=== PATIENT | male | born 1980 | race Caucasian/White ===

== ENCOUNTER 2016-03-29 23:44 | Emergency (ER) | payer OTHER ==
[~2016-03-29] VITALS: Ht 177.8 cm; Wt 115.5 kg
[~2016-03-29 23:44] MED LIST: DXM/4 PO; IBUP-1450 PO; LAMO25TA PO; OMEP20CA9 PO; ONDA4TAB10 SC
[2016-03-29 23:46] VITALS: TEMP 36.3; Ht 177.8 cm; Wt 115.5 kg
--- NOTE | 2016-03-30 00:42 | EMERGENCY ROOM VISIT NOTE ---
History Report prepared by Guillermo: Anayeli Brewster Under the Supervision of: Dr. Olvin Rae D.O. First contact with patient: 23:59 Chief Complaint: FACIAL PAIN/INJURY Stated Complaint: MELENOMA TUMORS OF BRAIN,FACE TWICHING History of Present Illness The patient is a 35 year old male who presents to the Emergency Room with complaints of worsening facial spasms for the past few weeks. The patient has been experiencing facial spasms for the past year secondary to metastatic melanoma of the brain. The patient has been taking Xanax for these spasms. notes that measures that were previously helping to alleviate these spasms are no longer working as effectively. Ice on his neck used to help but is no longer helping. The Xanax is also not as effective and he has to take larger doses. The patient reports that these spasms have been lasting longer than usual over the past two weeks. He had a longer episode this evening, which is why he came to the ED for evaluation. He also reports a left sided facial droop for the past two weeks. The patient follows with Dr. Pruett in [place]. Source of History: patient, spouse/significant other Onset: the past few weeks Position: other (face) Quality: other (spasms) Timing: worsening Modifying Factors (Worsening): other (metastatic melanoma) Modifying Factors (Relieving): ice, other (Xanax) Note: Pt reports left sided facial droop. Review of Systems See HPI for pertinent positives & negatives. A total of 10 systems reviewed and were otherwise negative. Past Medical & Surgical Medical Problems: (1) Brain metastases (2) Depressive Disorder Nec (3) Iatrogenic pneumothorax (4) Stroke Family History Cancer Social History Smoking Status: Never Smoker Alcohol Use: occasionally Marital Status: Housing Status: lives with family Occupation Status: employed Current/Historical Medications Scheduled Doxepin (Sinequan), 50 MG PO HS Escitalopram Oxalate (Lexapro), 20 MG PO QPM Melatonin (Melatonin), 3 MG PO HS Scheduled PRN Alprazolam (Xanax), 1 MG PO TID PRN for Anxiety Allergies Coded Allergies: Latex1 -Allergic Contact Dermititis (Verified Allergy, Intermediate, ITCHING, 03/30/16) Physical Exam Vital Signs Date Time Temp Pulse Resp B/P Pulse Ox O2 Delivery O2 Flow Rate FiO2 03/30/16 05:19 71 18 128/87 98 03/30/16 03:00 78 18 134/100 95 Room Air 03/29/16 23:46 36.3 98 18 150/87 93 Room Air Physical Exam GENERAL: Patient is awake, alert, and in no acute distress. Patient is resting comfortably and showing no signs of anxiety EYES: The conjunctivae are clear. The pupils are round and reactive. EARS, NOSE, MOUTH AND THROAT: The nose is without any evidence of any deformity. Mucous membranes are moist tongue is midline NECK: The neck is nontender and supple. RESPIRATORY: Normal respiratory effort is noted there is no evidence of wheezing rhonchi or rales CARDIOVASCULAR: Regular rate and rhythm noted there no murmurs rubs or gallops normal S1 normal S2 GASTROINTESTINAL: The abdomen is soft. Bowel sounds are present in all quadrants. Abdomen is nontender MUSCULOSKELETAL/EXTREMITIES: There is no evidence of gross deformity full range of motion is noted in the hips and shoulders SKIN: There is no obvious evidence of any rash. There are no petechiae, pallor or cyanosis noted. NEUROLOGIC: Patient is awake alert and oriented x3 strength is symmetric patellar reflexes are 2+ bilaterally. There is a facial droop on the left involving the corner of the mouth, but the forehead was spared. Medical Decision & Procedures ER Provider Diagnostic Interpretation: Radiology results as stated below per my review and radiologist interpretation: MRI HEAD: Compared to 07/31/15 Interval progression of metastatic disease to the brain. Once again, the dominant lesion is located in the right temporoparietal region. This currently measures 3.7 x 3.2 cm compared to 1.7 x 1.3 cm previously. Multiple new metastases, most notably in the high right parietal lobe measuring 1.4 cm. Associated vasgenic edema, but no midline shift or herniation. No gross tumoral hemorrhage. Radiologist: Carlos Mclean M.D. Ultrasound right upper quadrant was obtained. The report was reviewed. Preliminary Findings Only See Final Report For Complete Findings US RUQ: Enlarged and fatty liver. Multiple hepatic cysts, largest measuring 2.7 cm. Gallbladder wall is normal. Common bile duct measures 4 mm. No hydronephrosis. Radiologist: Vasyl Madrid M.D. Study ready at 04:30 and initial results transmitted at 04:42 Laboratory Results 03/30/16 00:40 Red Blood Count 4.41, Mean Corpuscular Volume 94.1, Mean Corpuscular Hemoglobin 32.2, Mean Corpuscular Hemoglobin Concent 34.2, Mean Platelet Volume 8.6, Neutrophils (%) (Auto) 52.4, Lymphocytes (%) (Auto) 29.3, Monocytes (%) (Auto) 16.0, Eosinophils (%) (Auto) 0.3, Basophils (%) (Auto) 0.3, Neutrophils # (Auto ) 3.38, Lymphocytes # (Auto) 1.89, Monocytes # (Auto) 1.03, Eosinophils # (Auto ) 0.02, Basophils # (Auto) 0.02 03/30/16 00:40 Test 03/30/16 00:40 03/30/16 00:41 White Blood Count 6.45 K/uL (4.8-10.8) Red Blood Count 4.41 M/uL (4.7-6.1) Hemoglobin 14.2 g/dL (14.0-18.0) Hematocrit 41.5 % (42-52) Mean Corpuscular Volume 94.1 fL (80-100) Mean Corpuscular Hemoglobin 32.2 pg (25-34) Mean Corpuscular Hemoglobin Concent 34.2 g/dl (32-36) Platelet Count 209 K/uL (130-400) Mean Platelet Volume 8.6 fL (7.4-10.4) Neutrophils (%) (Auto) 52.4 % Lymphocytes (%) (Auto) 29.3 % Monocytes (%) (Auto) 16.0 % Eosinophils (%) (Auto) 0.3 % Basophils (%) (Auto) 0.3 % Neutrophils # (Auto) 3.38 K/uL (1.4-6.5) Lymphocytes # (Auto) 1.89 K/uL (1.2-3.4) Monocytes # (Auto) 1.03 K/uL (0.11-0.59) Eosinophils # (Auto) 0.02 K/uL (0-0.5) Basophils # (Auto) 0.02 K/uL (0-0.2) RDW Standard Deviation 46.8 fL (36.4-46.3) RDW Coefficient of Variation 13.6 % (11.5-14.5) Immature Granulocyte % (Auto) 1.7 % Immature Granulocyte # (Auto) 0.11 K/uL (0.00-0.02) Prothrombin Time 10.2 SECONDS (9.0-12.0) Prothromb Time International Ratio 1.0 (0.9-1.1) Activated Partial Thromboplast Time 25.4 SECONDS (21.0-31.0) Partial Thromboplastin Ratio 1.0 Anion Gap 8.0 mmol/L (3-11) Est Creatinine Clear Calc Drug Dose 135.4 ml/min Estimated GFR () 117.4 Estimated GFR (Non- 101.3 BUN/Creatinine Ratio 22.5 (10-20) Calcium Level 8.5 mg/dl (8.5-10.1) Magnesium Level 2.6 mg/dl (1.8-2.4) Total Bilirubin 0.1 mg/dl (0.2-1) Direct Bilirubin < 0.1 mg/dl (0-0.2) Aspartate Amino Transf (AST/SGOT) 33 U/L (15-37) Alanine Aminotransferase (ALT/SGPT) 113 U/L (12-78) Alkaline Phosphatase 85 U/L (45-117) Total Protein 6.8 gm/dl (6.4-8.2) Albumin 3.2 gm/dl (3.4-5.0) Lipase 434 U/L (73-393) Chemistry Specimen Hemolysis Urine Color YELLOW Urine Appearance CLEAR (CLEAR) Urine pH 5.5 (4.5-7.5) Urine Specific Alloy 1.028 (1.000-1.030) Urine Protein NEG (NEG) Urine Glucose (UA) 1+ (NEG) Urine Ketones NEG (NEG) Urine Occult Blood TRACE (NEG) Urine Nitrite NEG (NEG) Urine Bilirubin NEG (NEG) Urine Urobilinogen NEG (NEG) Urine Leukocyte Esterase NEG (NEG) Urine WBC (Auto) 0 /hpf (0-5) Urine RBC (Auto) 0-4 /hpf (0-4) Urine Hyaline Casts (Auto) 1-5 /lpf (0-5) Urine Epithelial Cells (Auto) 0-5 /lpf (0-5) Urine Bacteria (Auto) NEG (NEG) Laboratory results per my review. ED Course 2359: The patient was evaluated in room B3B. A complete history and physical examination were performed. 0216: The patient was at [facility] and his requested to speak with me. She informed me that the patient has been having RUQ pains for the past few weeks as well as hematochezia. 0323: The patient returned from MRI. I spoke with him about his abdominal pain and hematochezia. We discussed the treatment plan. The patient will get an US of his gallbladder. 0459: I reassessed the patient at this time. He is feeling better and resting comfortably. I discussed the results and treatment plan with the patient. I answered all pertaining questions that he had. He expressed understanding and verbalized agreement. The patient will be discharged home. Medical Decision Differential diagnosis: Etiologies such as infection, hypoglycemia, electrolyte abnormalities, cardiac sources, intracerebral event, trauma, toxicologic, neurologic, as well as others were entertained. Nursing notes reviewed. Additional history is obtained from the patient's significant other. The patient is a 35-year-old male who is unfortunate history of metastatic melanoma. The patient is had metastatic disease to the brain. The patient has been having problems with twitching on the left side of his face because of a known right sided metastatic lesion. The patient has been treated with benzos with some relief. His significant other states that he is stop taking his seizure medications because of side effects. He does have a follow-up appointment this Sunday with his primary neurosurgical group at [facility]. He had an MRI at the beginning of this month. He's been having symptoms that have been ongoing. He also has been complaining of right upper quadrant pain as well. I discussed the patient's laboratory and radiographic studies with him. He did not have any seizure episode here. I did compare his MRI report this evening to the one from March 15 of this year and the metastatic disease has somewhat progressed. It is likely he will have to meet with his neurosurgeon to determine a plan where to go from here. He was encouraged to take both reports with him to follow-up with his primary neurologist. He was also encouraged to follow-up with his primary care physician for further evaluation and continue all other medications as prescribed. Impression Primary Impression: Focal seizure Additional Impression: RUQ abdominal pain Scribe Attestation The scribe's documentation has been prepared under my direction and personally reviewed by me in its entirety. I confirm that the note above accurately reflects all work, treatment, procedures, and medical decision making performed by me. Departure Information Dispostion Home / Self-Care Referrals Gemini Wells D.O. (PCP) Forms HOME CARE DOCUMENTATION FORM, IMPORTANT VISIT INFORMATION, Work Instructions Patient Instructions My [facility], Seizure Partial Additional Instructions Call your family in the morning to schedule a follow-up appointment. You may require further testing to evaluate the cause of your upper abdominal pain. You may also require a referral to a tv technician for colonoscopy. Follow- up with your neurologist and your neurosurgeon as soon as possible. Continue all medications as prescribed. Problem Qualifiers
[2016-03-30 00:56] LABS: BASO % 0.3 %; BASO ABS # 0.02 K/uL (0-0.2); COMPLETE YES; EOS % 0.3 %; HEMATOCRIT 41.5 % (42-52); IG% 1.7 %; LYMPH % 29.3 %; LYMPH ABS # 1.89 K/uL (1.2-3.4); MEAN CELL VOLUME 94.1 fL (80-100); MEAN CORPUSCULAR HEMOGLOBIN 32.2 pg (25-34); MEAN CORPUSCULAR HGB CONC 34.2 g/dl (32-36); MEAN PLATELET VOLUME 8.6 fL (7.4-10.4); NEUT % 52.4 %; PLATELET COUNT 209 K/uL (130-400); RED BLOOD COUNT 4.41 M/uL (4.7-6.1); WHITE BLOOD COUNT 6.45 K/uL (4.8-10.8)
[2016-03-30 00:59] LABS: URINE APPEARANCE CLEAR (CLEAR); URINE BILIRUBIN NEG (NEG); URINE COLOR YELLOW; URINE EPITHELIAL CELL AUTO 0-5 /lpf (0-5); URINE NITRITE NEG (NEG); URINE PH 5.5 (4.5-7.5); URINE SPECIFIC GRAVITY 1.028 (1.000-1.030); UROBILINOGEN NEG (NEG)
[2016-03-30 01:02] LABS: MANUAL MICROSCOPIC REQUIRED? NO; REVIEW REQ? NO
[2016-03-30 01:04] LABS: PROTHROMBIN TIME (PATIENT) 10.2 SECONDS (9.0-12.0)
[2016-03-30 01:16] LABS: BLOOD UREA NITROGEN 22 mg/dl (7-18); BUN/CREATININE RATIO 22.5 (10-20); CALCIUM 8.5 mg/dl (8.5-10.1); CARBON DIOXIDE 27 mmol/L (21-32); CHLORIDE 108 mmol/L (98-107); CREATININE 0.96 mg/dl (0.60-1.40); GLUCOSE 121 mg/dl (70-99); MAGNESIUM 2.6 mg/dl (1.8-2.4); POTASSIUM 3.8 mmol/L (3.5-5.1); SODIUM 143 mmol/L (136-145)
[2016-03-30] MEDS ORDERED: GADAVIST IV PRN (02:30)
[2016-03-30 02:52] LABS: ALT/SGPT 113 U/L (12-78); AST/SGOT 33 U/L (15-37)
[2016-03-30 03:07] LABS: ALKALINE PHOSPHATASE 85 U/L (45-117)
[2016-03-30 05:19] VITALS: BP 128/87; PULSE 71; O2SAT 98
--- NOTE | 2016-03-30 07:03 | DIAGNOSTIC IMAGING REPORT ---
ULTRASOUND RIGHT UPPER QUADRANT ABDOMEN CLINICAL HISTORY: Right upper quadrant abdominal pain. COMPARISON STUDY: Abdominal CT dated 10/30/2013. TECHNIQUE: Real-time, grayscale, and color flow sonography of the right upper quadrant of the abdomen was performed. Images are reviewed in the transverse and longitudinal planes. FINDINGS: Liver: The liver is enlarged and demonstrates heterogeneously increased echotexture consistent with hepatic steatosis. Note this degrades acoustic penetration of the liver. Fatty sparing is seen adjacent to gallbladder fossa. There is no intrahepatic biliary ductal dilatation. The main portal vein is patent. Scattered hepatic cysts measure up to 2.7 cm. Gallbladder: The gallbladder is normal in appearance. No gallstones are identified. There is no gallbladder wall thickening or pericholecystic fluid. A sonographic Cho's sign is reportedly absent. The common bile duct measures up to 0.4 cm in diameter. Pancreas: Visualized portions of the pancreatic head and body are normal in appearance. Right kidney: Survey images of the right kidney demonstrate normal size and echotexture. There is no hydronephrosis. Ascites: None. IMPRESSION: 1. No acute sonographic abnormality is identified in the right upper quadrant. No gallstones are identified. 2. Hepatomegaly and hepatic steatosis. Electronically signed by: Cosme Murillo M.D. 03/30/2016 7:01 AM Dictated Date/Time: 03/30/2016 6:59 AM
--- NOTE | 2016-03-30 07:30 | DIAGNOSTIC IMAGING REPORT ---
MRI OF THE BRAIN COMBO CLINICAL HISTORY: Right facial seizure. History of melanoma. Facial twitching. COMPARISON STUDY: MRI of the brain dated 10/19/2015. TECHNIQUE: MRI of the brain was performed utilizing various T1 and T2-weighted sequences in the axial, sagittal, and coronal planes. The Examination was performed using the seizure protocol. Contrast-enhanced sequences were acquired following the administration of 11 cc of Gadavist. The examination was performed utilizing the seizure protocol. FINDINGS: Brain parenchyma: An enhancing lesion centered in the right frontoparietal region has significantly increased in size from 10/19/2015, now measuring 3.2 x 3.7 x 3.0 cm (previously measured 2.7 x 2.1 x 1.8 cm). This demonstrates a fluid/fluid level and there is minimal susceptibility artifact in this region suggesting a trace component of age indeterminant hemorrhage. The degree of surrounding edema has significantly increased from 10/19/2015, and there is effacement of the overlying cortical sulci. No midline shift is seen. A 15 mm enhancing nodule in the high right frontal lobe in image #19 has significantly increased in size from previous (previously measured 5 mm. Lesions in the left frontal and parietal lobe seen on image #17 are new from previous and measure up to 7 mm. Lesions in the right thalamus, the left occipital lobe, and the left temporal lobe measuring up to 4 mm are also new. An enhancing lesion In the medial right temporal lobe on image #9 has not significantly changed. There is no restricted diffusion typical for acute ischemia. No extra-axial fluid collection is seen. The cerebellar tonsils are normal in configuration. Ventricles, sulci, and cisterns: Normal in configuration. See above. Pituitary and sella: Unremarkable. Intracranial vasculature: Normal flow voids are maintained at the skull base. Orbits: The bony orbits are grossly intact. Orbital contents are normal in appearance. Sinuses and mastoids: Nasal sinuses and mastoid air cells are clear. Calvarium: No destructive calvarial lesion is identified. Cervical cord: Partially visualized cervical spinal cord is normal in morphology and signal intensity. IMPRESSION: 1. Overall progression of intracranial metastatic disease as compared to the 10/19/2015 examination with several new lesions identified. There are least 10 total lesions seen. See above discussion. 2. The largest lesion in the right frontoparietal region has continued to increase in size and there has been continued increase in the degree of surrounding edema with effacement of the adjacent cortical sulci. There is no midline shift. Fluid/fluid levels identified within this lesion suggest a component of age indeterminant hemorrhage. 3. There is no restricted diffusion typical for acute ischemia. Electronically signed by: Cosme Murillo M.D. 03/30/2016 7:28 AM Dictated Date/Time: 03/30/2016 7:17 AM
[2016-04-30] MEDS ORDERED: DOXE50CA3 PO (00:32)
== END 2016-03-30 05:20 | disposition home or self-care (01) ==
LOC: C.EDB 23:46
DX: R56.9 Unspecified convulsions (principal); R10.11 Right upper quadrant pain; Z85.820 Personal history of malignant melanoma of skin; C79.31 Secondary malignant neoplasm of brain; F32.9 Major depressive disorder, single episode, unspecified; Z86.73 Personal history of transient ischemic attack (TIA), and cerebral infarction without residual deficits; Z80.9 Family history of malignant neoplasm, unspecified; Z79.899 Other long term (current) drug therapy

== ENCOUNTER 2016-04-30 16:02 | Emergency (ER) | payer OTHER ==
[~2016-04-30] VITALS: Ht 177.8 cm; Wt 115.0 kg
[~2016-04-30 16:02] MED LIST changes: +DOXE50CA3 PO; -DXM/4 PO; -IBUP-1450 PO; -LAMO25TA PO; -OMEP20CA9 PO; -ONDA4TAB10 SC
[2016-04-30 16:27] VITALS: TEMP 36.8; Ht 177.8 cm; Wt 115.0 kg
[2016-04-30] MEDS ORDERED: DEXAMETHASONE SOD INJ 10 MG/ML VIAL IV STA (16:45)
[2016-04-30] MEDS ORDERED: HYDROmorphone INJ 1 MG/ML SYR IV STA (16:45)
[2016-04-30] MEDS ORDERED: SODIUM CHLORIDE 0.9% 1000ML 1,000 ML IV STA (16:45)
[2016-04-30] MEDS ORDERED: SODIUM CHLORIDE 0.9% 1000ML 1,000 ML IV ONE (16:45)
[2016-04-30] MEDS ORDERED: ONDANSETRON INJ 2 MG/ML 2 ML VIAL IV STA (16:45)
[2016-04-30 17:00] VITALS: O2SAT 95
--- NOTE | 2016-04-30 17:05 | EMERGENCY ROOM VISIT NOTE ---
History Report prepared by Guillermo: Anayeli Brewster Under the Supervision of: Dr. Arun Diaz M.D. First contact with patient: 16:34 Chief Complaint: HEADACHE Stated Complaint: BRAIN CANCER,HEADACHE FOR 3 DAYS History of Present Illness The patient is a 35 year old male who presents to the Emergency Room with complaints of a constant headache for the past 3 days. 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 He had his first chemotherapy treatment 6 days ago. He is scheduled to have his next treatment in [address] Johnson is his oncologist. The patient has a history of migraine headaches. He states that this feels "like a bad migraine" but it also feels different from his typical migraines. He is having neck pain that is worse with movement. states that the patient was complaining of sinus congestion so she had been giving him Sudafed and a nasal spray, but he has not had any relief of his symptoms. She also reports that the patient's blood pressure was elevated this morning. The patient rates his current pain as an 8/10 in severity. Source of History: patient, spouse/significant other Onset: 3 days ago Position: head Symptom Intensity: 8/10 Timing: constant Modifying Factors (Worsening): movement, other (melanoma with mets to the brain) Associated Symptoms: + neck pain Review of Systems See HPI for pertinent positives & negatives. A total of 10 systems reviewed and were otherwise negative. Past Medical & Surgical Medical Problems: (1) Brain metastases (2) Depressive Disorder Nec (3) Iatrogenic pneumothorax (4) Stroke Family History Cancer Social History Smoking Status: Never Smoker Alcohol Use: occasionally Marital Status: Housing Status: lives with family Occupation Status: employed Current/Historical Medications Scheduled Clonazepam (Klonopin), 1 MG PO BID Dexamethasone (Decadron), 4 TAB PO UD Doxepin (Sinequan), 50 MG PO HS Escitalopram Oxalate (Lexapro), 20 MG PO QPM Melatonin (Melatonin), 3 MG PO HS Omeprazole (Prilosec), 20 MG PO DAILY Sumatriptan Succinate (Imitrex), 100 MG PO PRN [Chemo], 1 DOSE IV QOWEEK [Motrin Migraine], 2-3 TABS PO PRN UD Scheduled PRN Alprazolam (Xanax), 1 MG PO TID PRN for Anxiety Ondansetron Hcl (Zofran), 8 MG PO TID PRN for Nausea Allergies Coded Allergies: Latex1 -Allergic Contact Dermititis (Verified Allergy, Intermediate, ITCHING, 03/30/16) Physical Exam Vital Signs Date Time Temp Pulse Resp B/P Pulse Ox O2 Delivery O2 Flow Rate FiO2 04/30/16 21:32 74 18 124/87 93 Room Air 04/30/16 19:47 66 18 140/100 93 Room Air 04/30/16 17:47 99 18 140/86 95 Room Air 04/30/16 17:08 85 04/30/16 17:00 95 Room Air 04/30/16 16:27 36.8 93 20 152/104 95 Room Air Physical Exam GENERAL: Patient is a healthy-appearing well-nourished 35 year old male. HEAD: Normocephalic atraumatic EYES: Ocular movements intact pupils equal and react to light OROPHARYNX mucous membranes are moist no exudates present no erythema or edema present NECK: Supple no nuchal rigidity CHEST: Good equal expansion LUNGS: Clear and equal to auscultation CARDIAC: Normal S1 and S2 ABDOMEN: Soft nontender no guarding BACK: No CVA tenderness EXTREMITIES: No pain upon palpation normal muscle strength in all groups no clubbing cyanosis or edema NEURO: Patient is following commands is answering questions appropriately. Alert and oriented x3 Cranial Nerves 2-12 grossly intact, left sided facial droop. Medical Decision & Procedures ER Provider Diagnostic Interpretation: Radiology results as stated below per my review and radiologist interpretation: HEAD CT NONCONTRAST CT DOSE: 537.48 mGy.cm HISTORY: Metastatic disease Pt known mets to head c/o severe CHIRINOS TECHNIQUE: Multiaxial CT images of the head were performed without the use of intravenous contrast. Comparison: 07/07/2015 Findings: The paranasal sinuses and mastoid air cells are clear. There are findings of progressive hemorrhagic metastatic changes throughout both cerebral hemispheres. Largest contains fluid fluid levels in the right posterior frontal parietal region with a maximum dimension of 5 cm. There is considerable surrounding soft tissue edematous change. There is midline shift to the left upper proximal 9.5 mm Hyperdense or partially hemorrhagic metastatic deposits are identified over the anterior cerebral convexities bilaterally. The fourth ventricle shows no displacement. There is partial effacement and/or distortion of the quadrigeminal plate cistern. Impression: 1. Interval development of progressive hemorrhagic metastatic deposits at multiple locations. 2. The largest is in the posterior right frontal parietal lobe region having a maximum fluid/fluid dimension of 5 cm. Considerable surrounding vasogenic edema. 3. Smaller lesions again high density and partially hemorrhagic are identified at least 2 locations of the left frontal lobe and one on the right 4. Interval development of midline shift to the left of approximately 9.5 mm 5. Partial effacement suprasellar cistern Electronically signed by: Jonathan Gotti M.D. 04/30/2016 5:34 PM Dictated Date/Time: 04/30/2016 5:26 PM CHEST ONE VIEW PORTABLE CLINICAL HISTORY: Sepsis dyspnea COMPARISON STUDY: 08/31/2015 FINDINGS: Moderate cardia megaly. Diaphragms smooth. Lungs are clear. 1 cm nodular density right upper lung unchanged from the prior study. Several small calcified granulomas also stable. IMPRESSION: Mild cardia megaly. Unchanged 1 cm nodular density right upper lung. No focal infiltrates Electronically signed by: Jonathan Gotti M.D. 04/30/2016 5:26 PM Dictated Date/Time: 04/30/2016 5:25 PM Laboratory Results 04/30/16 17:00 Red Blood Count 5.02, Mean Corpuscular Volume 93.0, Mean Corpuscular Hemoglobin 31.3, Mean Corpuscular Hemoglobin Concent 33.6, Mean Platelet Volume 9.1, Neutrophils (%) (Auto) 68.8, Lymphocytes (%) (Auto) 18.4, Monocytes (%) (Auto) 10.8, Eosinophils (%) (Auto) 0.7, Basophils (%) (Auto) 0.1, Neutrophils # (Auto ) 5.12, Lymphocytes # (Auto) 1.37, Monocytes # (Auto) 0.80, Eosinophils # (Auto ) 0.05, Basophils # (Auto) 0.01 04/30/16 17:00 Test 04/30/16 17:00 04/30/16 17:07 White Blood Count 7.44 K/uL (4.8-10.8) Red Blood Count 5.02 M/uL (4.7-6.1) Hemoglobin 15.7 g/dL (14.0-18.0) Hematocrit 46.7 % (42-52) Mean Corpuscular Volume 93.0 fL (80-100) Mean Corpuscular Hemoglobin 31.3 pg (25-34) Mean Corpuscular Hemoglobin Concent 33.6 g/dl (32-36) Platelet Count 247 K/uL (130-400) Mean Platelet Volume 9.1 fL (7.4-10.4) Neutrophils (%) (Auto) 68.8 % Lymphocytes (%) (Auto) 18.4 % Monocytes (%) (Auto) 10.8 % Eosinophils (%) (Auto) 0.7 % Basophils (%) (Auto) 0.1 % Neutrophils # (Auto) 5.12 K/uL (1.4-6.5) Lymphocytes # (Auto) 1.37 K/uL (1.2-3.4) Monocytes # (Auto) 0.80 K/uL (0.11-0.59) Eosinophils # (Auto) 0.05 K/uL (0-0.5) Basophils # (Auto) 0.01 K/uL (0-0.2) RDW Standard Deviation 47.2 fL (36.4-46.3) RDW Coefficient of Variation 14.0 % (11.5-14.5) Immature Granulocyte % (Auto) 1.2 % Immature Granulocyte # (Auto) 0.09 K/uL (0.00-0.02) Prothrombin Time 10.3 SECONDS (9.0-12.0) Prothromb Time International Ratio 1.0 (0.9-1.1) Activated Partial Thromboplast Time 22.8 SECONDS (21.0-31.0) Partial Thromboplastin Ratio 0.9 Anion Gap 11.0 mmol/L (3-11) Est Creatinine Clear Calc Drug Dose 129.7 ml/min Estimated GFR () 111.7 Estimated GFR (Non- 96.4 BUN/Creatinine Ratio 14.2 (10-20) Calcium Level 8.9 mg/dl (8.5-10.1) Total Bilirubin 0.3 mg/dl (0.2-1) Aspartate Amino Transf (AST/SGOT) 34 U/L (15-37) Alanine Aminotransferase (ALT/SGPT) 143 U/L (12-78) Alkaline Phosphatase 94 U/L (45-117) Total Protein 7.3 gm/dl (6.4-8.2) Albumin 3.4 gm/dl (3.4-5.0) Globulin 3.9 gm/dl (2.5-4.0) Albumin/Globulin Ratio 0.9 (0.9-2) Bedside Lactic Acid Venous 1.57 mmol/L (0.90-1.70) Labs reviewed by ED physician. Medications Administered Medications (Trade) Dose Ordered Sig/Mc Route Start Time Stop Time Status Last Admin Dose Admin Sodium Chloride 1,000 ml @ 999 mls/hr Q1H1M ONCE IV 04/30/16 16:45 04/30/16 17:45 DC 04/30/16 17:04 999 MLS/HR Sodium Chloride (Nss 1000ml) 1,000 ml @ 999 mls/hr Q1H1M STAT IV 04/30/16 16:45 04/30/16 17:45 DC 04/30/16 17:04 999 MLS/HR Hydromorphone HCl (Dilaudid Inj) 1 mg NOW STAT IV 04/30/16 16:45 04/30/16 16:48 DC 04/30/16 17:04 1 MG Dexamethasone Sodium Phosphate (Decadron Inj) 10 mg NOW STAT IV 04/30/16 16:45 04/30/16 16:48 DC 04/30/16 17:04 10 MG Ondansetron HCl (Zofran Inj) 4 mg NOW STAT IV 04/30/16 16:45 04/30/16 16:48 DC 04/30/16 17:04 4 MG Prochlorperazine Edisylate (Compazine Inj) 10 mg NOW STAT IV 04/30/16 17:36 04/30/16 17:38 DC 04/30/16 17:44 10 MG Diphenhydramine HCl (Benadryl Inj) 50 mg NOW STAT IV 04/30/16 17:36 04/30/16 17:38 DC 04/30/16 17:44 50 MG Hydromorphone HCl (Dilaudid Inj) 1 mg STK-MED ONCE .ROUTE 04/30/16 21:25 04/30/16 21:28 DC 04/30/16 21:25 1 MG ECG Indication: other Rate (beats per minute): 82 Rhythm: sinus rhythm Findings: PAC, no acute ischemic change ED Course 1634: Past medical records reviewed. The patient was evaluated in room C4. A complete history and physical examination was performed. 1645: Zofran 4 mg IV, Decadron 10 mg IV, Dilaudid 1 mg IV, NSS 1000 ml @ 999 mls /hr IV, NSS 1000 ml @ 999 mls/hr IV 1717: I reassessed the patient at this time and he is doing well. 1730: At this time I spoke with Dr. Gotti of radiology regarding the patient's imaging results. 1736: Benadryl 50 mg IV, Compazine 10 mg IV 1740: I updated the patient and his . 175: At this time I spoke with Dr. Pruett, the patient's neurosurgeon at [facility]. We discussed the patient's results and treatment plan. He accepted the patient for transfer and further management. 180: I reassessed the patient at this time. He is resting more comfortably. I discussed the results and treatment plan with the patient and his . I answered all pertaining questions that they had. They expressed understanding and verbalized agreement. The patient will be transferred to [facility]. Medical Decision Differential diagnosis: Etiologies such as migraine headache, meningitis, sinusitis, CO exposure, ICH, SAH, infection, tumor, headache, sinus thrombosis, arterial dissection, as well as others were entertained. This is a 35-year-old male who has known metastatic disease to his brain complaining of severe headache that is been ongoing for the past 3 days. An IV was established, patient given normal saline bolus, Dilaudid, Zofran. The patient was also given 10 mg of Decadron. Repeat examination revealed improvement patient's symptoms. The patient's CAT scan of his head is concerning for new metastases along with a midline shift. Based on these findings I did discuss the case with the patient's neurosurgeon and [facility] Dr. Faustin who immediately accepted the patient. The patient was given additional Compazine and Benadryl for his headache. He was transferred via ambulance. Both patient and are in agreement with treatment plan. Consults Time Called: 1750 Consulting Physician: Dr. Pruett Returned Call: 1753 At this time I spoke with Dr. Pruett, the patient's neurosurgeon at [facility]. We discussed the patient's results and treatment plan. He accepted the patient for transfer and further management. Impression Primary Impression: Headache Critical Care I have personally spent greater than 30 minutes of critical care time in the direct management of this patient. This includes bedside care, interpretation of diagnostic studies, and testing, discussion with consultants, patient, and family members, and other required patient management activities. This 30 minutes is in excess of all separately billable procedures. Scribe Attestation The scribe's documentation has been prepared under my direction and personally reviewed by me in its entirety. I confirm that the note above accurately reflects all work, treatment, procedures, and medical decision making performed by me. Departure Information Dispostion Transfer Acute Care Facility Referrals Gemini Wells D.O. (PCP) Patient Instructions My [facility] Problem Qualifiers Primary Impression: Headache Headache type: unspecified Headache chronicity pattern: unspecified pattern Intractability: intractable Qualified Codes: R51 - Headache
[2016-04-30] MEDS ORDERED: IBUPROFEN PO (17:08)
[2016-04-30] MEDS ORDERED: CHEMO IV (17:08)
[2016-04-30] MEDS ORDERED: CLON1TAB3 PO (17:08)
[2016-04-30] MEDS ORDERED: SUMA100T16 PO (17:08)
[2016-04-30] MEDS ORDERED: DXM/4 PO (17:08)
[2016-04-30] MEDS ORDERED: PRLSR20 PO (17:08)
[2016-04-30] MEDS ORDERED: ONDA8TAB6 PO (17:08)
--- NOTE | 2016-04-30 17:27 | DIAGNOSTIC IMAGING REPORT ---
CHEST ONE VIEW PORTABLE CLINICAL HISTORY: Sepsis dyspnea COMPARISON STUDY: 08/31/2015 FINDINGS: Moderate cardia megaly. Diaphragms smooth. Lungs are clear. 1 cm nodular density right upper lung unchanged from the prior study. Several small calcified granulomas also stable. IMPRESSION: Mild cardia megaly. Unchanged 1 cm nodular density right upper lung. No focal infiltrates Electronically signed by: Jonathan Gotti M.D. 04/30/2016 5:26 PM Dictated Date/Time: 04/30/2016 5:25 PM
[2016-04-30 17:35] LABS: BASO % 0.1 %; BASO ABS # 0.01 K/uL (0-0.2); COMPLETE YES; EOS % 0.7 %; HEMATOCRIT 46.7 % (42-52); IG% 1.2 %; LYMPH % 18.4 %; LYMPH ABS # 1.37 K/uL (1.2-3.4); MEAN CORPUSCULAR HEMOGLOBIN 31.3 pg (25-34); MEAN CORPUSCULAR HGB CONC 33.6 g/dl (32-36); MEAN PLATELET VOLUME 9.1 fL (7.4-10.4); MONO % 10.8 %; NEUT % 68.8 %; PLATELET COUNT 247 K/uL (130-400); RED BLOOD COUNT 5.02 M/uL (4.7-6.1); WHITE BLOOD COUNT 7.44 K/uL (4.8-10.8)
--- NOTE | 2016-04-30 17:35 | DIAGNOSTIC IMAGING REPORT ---
HEAD CT NONCONTRAST CT DOSE: 537.48 mGy.cm HISTORY: Metastatic disease Pt known mets to head c/o severe CHIRINOS TECHNIQUE: Multiaxial CT images of the head were performed without the use of intravenous contrast. Comparison: 07/07/2015 Findings: The paranasal sinuses and mastoid air cells are clear. There are findings of progressive hemorrhagic metastatic changes throughout both cerebral hemispheres. Largest contains fluid fluid levels in the right posterior frontal parietal region with a maximum dimension of 5 cm. There is considerable surrounding soft tissue edematous change. There is midline shift to the left upper proximal 9.5 mm Hyperdense or partially hemorrhagic metastatic deposits are identified over the anterior cerebral convexities bilaterally. The fourth ventricle shows no displacement. There is partial effacement and/or distortion of the quadrigeminal plate cistern. Impression: 1. Interval development of progressive hemorrhagic metastatic deposits at multiple locations. 2. The largest is in the posterior right frontal parietal lobe region having a maximum fluid/fluid dimension of 5 cm. Considerable surrounding vasogenic edema. 3. Smaller lesions again high density and partially hemorrhagic are identified at least 2 locations of the left frontal lobe and one on the right 4. Interval development of midline shift to the left of approximately 9.5 mm 5. Partial effacement suprasellar cistern Electronically signed by: Jonathan Gotti M.D. 04/30/2016 5:34 PM Dictated Date/Time: 04/30/2016 5:26 PM
[2016-04-30] MEDS ORDERED: DiphenhydrAMINE HCL 50 MG/ML VIAL IV STA (17:36)
[2016-04-30] MEDS ORDERED: PROCHLORPERAZINE 5 MG/ML 2 ML VIAL IV STA (17:36)
[2016-04-30 17:44] LABS: PARTIAL THROMBOPLASTIN RATIO 0.9; PROTHROMBIN TIME (PATIENT) 10.3 SECONDS (9.0-12.0)
[2016-04-30 17:51] LABS: BUN/CREATININE RATIO 14.2 (10-20); CALCIUM 8.9 mg/dl (8.5-10.1); POTASSIUM 3.7 mmol/L (3.5-5.1)
[2016-04-30 17:54] LABS: ALB/GLOB RATIO 0.9 (0.9-2)
[2016-04-30] MEDS ORDERED: ALPR-385 PO (20:49)
[2016-04-30] MEDS ORDERED: MELA3TAB PO (20:49)
[2016-04-30] MEDS ORDERED: HYDROmorphone INJ 1 MG/ML SYR ONE (21:25)
[2016-04-30] MEDS ORDERED: NURSING VERBAL MED ORDER ONE (21:30)
[2016-04-30 21:32] VITALS: BP 124/87; PULSE 74; O2SAT 93
[2016-04-30] MEDS ORDERED: ESCI1TAB10 PO (22:05)
== END 2016-04-30 21:41 | disposition short-term general hospital (02) ==
LOC: C.EDB 16:02 → C.EDC 21:41
DX: R51 Headache (principal); C79.31 Secondary malignant neoplasm of brain; C43.9 Malignant melanoma of skin, unspecified; F32.9 Major depressive disorder, single episode, unspecified; Z86.73 Personal history of transient ischemic attack (TIA), and cerebral infarction without residual deficits; Z91.040 Latex allergy status; Z79.52 Long term (current) use of systemic steroids; Z79.899 Other long term (current) drug therapy